=== PATIENT | male | born 1965 | race Caucasian/White ===

== ENCOUNTER 2019-02-21 14:05 | Emergency (ER) | payer MEDICAID ==
[~2019-02-21] VITALS: Ht 182.9 cm; Wt 76.4 kg
[2019-02-21 14:30] VITALS: Ht 182.9 cm; Wt 76.4 kg
[2019-02-21] MEDS ORDERED: ALBUTEROL SULF8.5 GM INH (14:32)
[2019-02-21] MEDS ORDERED: NEURONTIN 300300 MG PO (14:32)
[2019-02-21] MEDS ORDERED: ULTRAM50 MG PO (15:39)
[2019-02-21 16:03] VITALS: BP 129/80
== END 2019-02-21 15:59 | disposition home or self-care (01) ==
LOC: D.ER 14:05
DX: S63.501A Unspecified sprain of right wrist, initial encounter (principal); W10.9XXA Fall (on) (from) unspecified stairs and steps, initial encounter; Y93.89 Activity, other specified; Y92.89 Other specified places as the place of occurrence of the external cause

== ENCOUNTER 2020-03-04 17:10 | Emergency (ER) | payer MEDICAID ==
[~2020-03-04] VITALS: Ht 182.9 cm; Wt 68.2 kg
[~2020-03-04 17:10] MED LIST: ALBUTEROL SULF8.5 GM INH; NEURONTIN 300300 MG PO; ULTRAM50 MG PO
[2020-03-04 17:19] VITALS: Ht 182.9 cm; Wt 68.2 kg
[2020-03-04 17:49] LABS: BASOPHILS 1.4 % (0-2); EOSINOPHILS 0.8 % (0-7); HEMATOCRIT 39.5 % (42.0-54.0); HEMOGLOBIN 13.7 g/dL (13.5-17.5); IMMATURE GRANULOCYTES 0.3 % (0-5); LYMPHOCYTES 27.2 % (15-50); MCH 36.8 pg (26.0-34.0); MCHC 34.7 g/dL (31.0-37.0); MCV 106.2 fL (80.0-100.0); MEAN PLATELET VOLUME 12.1 fL (7.4-10.4); MONOCYTES 10.2 % (2-11); NEUTROPHILS 60.1 % (40-80); PLATELET COUNT 63 10x3/uL (130-400); RBC 3.72 10x6/uL (4.20-6.10); RDW 13.4 % (11.5-14.5); WBC 6.3 10x3/uL (4.8-10.8)
[2020-03-04 17:56] LABS: CALC OSMOLALITY 272 mosm/kg (275-300); CALCIUM 7.4 mg/dL (8.5-10.1); CARBON DIOXIDE 27.4 mmol/L (21.0-32.0); CHLORIDE - SERUM 103 mmol/L (98-107); CREATININE - SERUM 0.8 mg/dL (0.6-1.3); GLUCOSE 108 mg/dL (74-106); POTASSIUM - SERUM 3.1 mmol/L (3.5-5.1); SODIUM 138 mmol/L (136-145); UREA NITROGEN 2 mg/dL (7-18); eGFR NON AFRICAN AMERICAN > 90 mL/min (90-120)
[2020-03-04 18:04] LABS: ALBUMIN 2.7 g/dL (3.4-5.0); ALKALINE PHOSPHATASE 111 U/L (30-120); ALT (SGPT) 64 U/L (10-68); BILIRUBIN - TOTAL 1.25 mg/dL (0.2-1.3); PROTEIN - SERUM 7.6 g/dL (6.4-8.2)
[2020-03-04 18:21] LABS: APTT 35.5 SECONDS (22.8-39.4)
[2020-03-04 18:23] LABS: INR 1.17 (0.85-1.17); PROTIME 14.9 SECONDS (11.6-15.0)
[2020-03-04 18:30] LABS: D-DIMER-QUANTITATIVE 10.93 ug/mLFEU (0.20-0.54)
[2020-03-04 18:32] LABS: PLATELET ESTIMATE DECREASED
[2020-03-04] MEDS ORDERED: CLEOCIN HCL300 MG PO (19:47)
[2020-03-04 20:46] VITALS: BP 117/86
== END 2020-03-04 20:47 | disposition home or self-care (01) ==
LOC: D.ER 17:10
PROVIDERS: Family Medicine
DX: F10.129 Alcohol abuse with intoxication, unspecified (principal); Y90.9 Presence of alcohol in blood, level not specified; L03.116 Cellulitis of left lower limb; E87.6 Hypokalemia; J45.909 Unspecified asthma, uncomplicated; G62.9 Polyneuropathy, unspecified

== ENCOUNTER 2020-03-25 13:53 | Emergency (ER) | payer MEDICAID ==
[~2020-03-25] VITALS: Ht 182.9 cm; Wt 81.8 kg
[~2020-03-25 13:53] MED LIST changes: +CLEOCIN HCL300 MG PO
[2020-03-25 14:00] VITALS: Ht 182.9 cm; Wt 81.8 kg
[2020-03-25 15:02] LABS: BASOPHILS 0.9 % (0-2); EOSINOPHILS 1.7 % (0-7); HEMATOCRIT 37.4 % (42.0-54.0); HEMOGLOBIN 13.3 g/dL (13.5-17.5); IMMATURE GRANULOCYTES 0.2 % (0-5); LYMPHOCYTES 28.3 % (15-50); MCHC 35.6 g/dL (31.0-37.0); MCV 106.9 fL (80.0-100.0); MEAN PLATELET VOLUME 12.4 fL (7.4-10.4); NEUTROPHILS 55.9 % (40-80); PLATELET COUNT 56 10x3/uL (130-400); RDW 14.2 % (11.5-14.5); WBC 5.4 10x3/uL (4.8-10.8)
[2020-03-25 15:06] LABS: PLATELET ESTIMATE DECREASED
[2020-03-25 15:07] LABS: CALC OSMOLALITY 280 mosm/kg (275-300); CALCIUM 7.8 mg/dL (8.5-10.1); CARBON DIOXIDE 27.6 mmol/L (21.0-32.0); CHLORIDE - SERUM 107 mmol/L (98-107); CREATININE - SERUM 0.7 mg/dL (0.6-1.3); GLUCOSE 88 mg/dL (74-106); POTASSIUM - SERUM 3.6 mmol/L (3.5-5.1); SODIUM 143 mmol/L (136-145); UREA NITROGEN 3 mg/dL (7-18); eGFR NON AFRICAN AMERICAN > 90 mL/min (90-120)
[2020-03-25 15:12] LABS: ALBUMIN 2.5 g/dL (3.4-5.0); ALKALINE PHOSPHATASE 133 U/L (30-120); ALT (SGPT) 52 U/L (10-68); PROTEIN - SERUM 7.6 g/dL (6.4-8.2)
[2020-03-25 15:19] LABS: APTT 36.2 SECONDS (22.8-39.4); INR 1.29 (0.85-1.17)
[2020-03-25 16:00] LABS: BILIRUBIN NEGATIVE (NEGATIVE); GLUCOSE NEGATIVE (NEGATIVE); KETONE NEGATIVE (NEGATIVE); NITRITE NEGATIVE (NEGATIVE); UROBILINOGEN NORMAL (NORMAL)
[2020-03-25] MEDS ORDERED: CLEOCIN HCL300 MG PO (16:29)
[2020-03-25 16:45] VITALS: BP 118/67
== END 2020-03-25 16:46 | disposition home or self-care (01) ==
LOC: D.ER 13:53
PROVIDERS: Family Medicine
DX: L03.116 Cellulitis of left lower limb (principal); J45.909 Unspecified asthma, uncomplicated; Z72.0 Tobacco use; G62.9 Polyneuropathy, unspecified